=== PATIENT | male | born 1940 | race Caucasian/White ===

== ENCOUNTER → 2016-08-22 | Outpatient (CLI) | payer OTHER ==
[2016-08-22 10:52] LABS: BASO % 0.4 % (0.0-1.0); EOS # 0.3 10*3/uL (0.0-0.4); EOS % 4.1 % (1.0-4.0); HEMATOCRIT 34.8 % (42.0-52.0); HEMOGLOBIN 10.5 g/dl (14.0-18.0); LYMPH # 1.9 10*3/uL (1.3-4.4); LYMPH % 25.1 % (27.0-41.0); MEAN CELL VOLUME 84.3 fl (80.0-94.0); MEAN CORPUSCULAR HGB 25.4 pg (27.0-31.0); MEAN CORPUSCULAR HGB CONC 30.2 g/dl (33.0-37.0); MEAN PLATELET VOLUME 11.6 fl (9.6-12.3); MONO # 0.7 10*3/uL (0.1-1.0); MONO % 9.2 % (3.0-9.0); NEUT # 4.7 10*3/uL (2.3-7.9); NEUT % 60.8 % (47.0-73.0); PLATELET COUNT AUTOMATED 191 10*3/uL (130-400); RED BLOOD COUNT 4.13 10*6/uL (4.50-5.90); RED CELL DISTRI WIDTH 15.3 % (0-14.5); WHITE BLOOD COUNT 7.7 10*3/uL (4.8-10.8)
[2016-08-22 11:11] LABS: HEMOGLOBIN A1c 9.3 % (4.8-5.6)
[2016-08-23 05:05] LABS: MICRO ALBUMIN/CRE RATIO 47.4 (0.0-30.0)
== END | disposition home or self-care (01) ==
LOC: LAB 10:07
PROVIDERS: Internal Medicine
DX: I12.9 Hypertensive chronic kidney disease with stage 1 through stage 4 chronic kidney disease, or unspecified chronic kidney disease (principal); E11.21 Type 2 diabetes mellitus with diabetic nephropathy; E11.22 Type 2 diabetes mellitus with diabetic chronic kidney disease; N18.9 Chronic kidney disease, unspecified; E11.65 Type 2 diabetes mellitus with hyperglycemia; D50.9 Iron deficiency anemia, unspecified

== ENCOUNTER → 2016-12-25 | Outpatient (CLI) | payer OTHER ==
[2016-12-25 11:23] LABS: CREATININE 1.48 mg/dL (0.70-1.30); POTASSIUM 4.4 mmol/L (3.5-5.1)
== END | disposition home or self-care (01) ==
LOC: LAB 10:32
PROVIDERS: Internal Medicine
DX: I12.9 Hypertensive chronic kidney disease with stage 1 through stage 4 chronic kidney disease, or unspecified chronic kidney disease (principal); N18.9 Chronic kidney disease, unspecified; E11.22 Type 2 diabetes mellitus with diabetic chronic kidney disease; E11.21 Type 2 diabetes mellitus with diabetic nephropathy; E11.65 Type 2 diabetes mellitus with hyperglycemia; I11.9 Hypertensive heart disease without heart failure

== ENCOUNTER → 2017-08-22 | Outpatient (CLI) | payer OTHER ==
[2017-08-22 12:14] LABS: CREATININE 1.54 mg/dL (0.70-1.30)
== END | disposition home or self-care (01) ==
LOC: LAB 10:22
PROVIDERS: Internal Medicine
DX: E11.22 Type 2 diabetes mellitus with diabetic chronic kidney disease (principal); N18.3 Chronic kidney disease, stage 3 (moderate); E11.21 Type 2 diabetes mellitus with diabetic nephropathy

== ENCOUNTER → 2018-01-01 | Outpatient (CLI) | payer OTHER ==
[2018-01-01 12:47] LABS: ALKALINE PHOSPHATASE 85 U/L (45-117); BUN 22 mg/dl (7-24); CHLORIDE 107 mmol/L (98-107); CHOLESTEROL 110 mg/dL (<200); CREATININE 1.38 mg/dL (0.70-1.30); HDL CHOLESTEROL 35 mg/dl (40-60); LDL CHOLESTEROL 56 mg/dL (9-159); POTASSIUM 4.3 mmol/L (3.5-5.1); SGOT/AST 17 IU/L (3-35); SGPT/ALT 22 U/L (12-78); SODIUM 142 mmol/L (136-145); TRIGLYCERIDES 97 mg/dl (<150); VLDL CHOLESTEROL 19 mg/dL (6-40)
== END ==
LOC: LAB 11:44
PROVIDERS: Internal Medicine
DX: E11.22 Type 2 diabetes mellitus with diabetic chronic kidney disease (principal); E11.40 Type 2 diabetes mellitus with diabetic neuropathy, unspecified; E11.21 Type 2 diabetes mellitus with diabetic nephropathy; E78.2 Mixed hyperlipidemia; R00.1 Bradycardia, unspecified

== ENCOUNTER → 2018-06-11 | Outpatient (CLI) | payer OTHER ==
[2018-06-11 12:19] LABS: ALBUMIN 3.2 gm/dl (3.1-4.5); BUN 21 mg/dl (7-24); CHLORIDE 107 mmol/L (98-107); IRON 58 ug/dL (65-175); POTASSIUM 3.8 mmol/L (3.5-5.1); SGOT/AST 11 IU/L (3-35); SGPT/ALT 23 U/L (12-78); SODIUM 140 mmol/L (136-145); TOTAL IRON BINDING CAPACITY 349 ug/dl (250-450)
[2018-06-11 12:24] LABS: ALKALINE PHOSPHATASE 98 U/L (45-117); TOTAL PROTEIN 6.9 gm/dL (6.4-8.2)
== END | disposition home or self-care (01) ==
LOC: LAB 10:43
PROVIDERS: Internal Medicine
DX: E78.2 Mixed hyperlipidemia (principal); E11.40 Type 2 diabetes mellitus with diabetic neuropathy, unspecified; E11.21 Type 2 diabetes mellitus with diabetic nephropathy; E11.29 Type 2 diabetes mellitus with other diabetic kidney complication; I11.9 Hypertensive heart disease without heart failure; D50.8 Other iron deficiency anemias

== ENCOUNTER → 2019-08-10 | Outpatient (CLI) | payer MEDICARE | END | disposition home or self-care (01) | LOC: CT 11:00 | DX: G93.89 Other specified disorders of brain (principal); D18.1 Lymphangioma, any site; Z86.73 Personal history of transient ischemic attack (TIA), and cerebral infarction without residual deficits ==